=== PATIENT | male | born 1965 | race Caucasian/White ===

== ENCOUNTER → 2019-07-23 | Outpatient (CLI) | payer OTHER ==
[~2019-07-23] MED LIST: AMLO10 PO; ATOR10 PO
[2019-07-24 17:45] LABS: Campylobacter Sp Not Detected (NOT DETECT)
[2019-07-24 17:46] LABS: Adenovirus F 40/41 Not Detected (NOT DETECT); Astrovirus Not Detected (NOT DETECT); Cryptosporidium Not Detected (NOT DETECT); Cyclospora Cayetanensis Not Detected (NOT DETECT); E. Coli O157 Not Detected (NOT DETECT); Entamoeba Histolytica Not Detected (NOT DETECT); Enteroaggregative E. coli-EAEC Not Detected (NOT DETECT); Enteropathogenic E. coli-EPEC Not Detected (NOT DETECT); Enterotoxigenic E. coli-ETEC Not Detected (NOT DETECT); Giardia Lamblia Not Detected (NOT DETECT); Norovirus GI/GII Not Detected (NOT DETECT); Plesiomonas Shigelloides Not Detected (NOT DETECT); Rotavirus A Not Detected (NOT DETECT); Salmonella Sp Not Detected (NOT DETECT); Sapovirus Not Detected (NOT DETECT); Shiga Toxin-prod E. coli-STEC Not Detected (NOT DETECT); Shigella/Enteroin E. coli-EIEC Not Detected (NOT DETECT); Vibrio Cholerae Not Detected (NOT DETECT); Vibrio Sp Not Detected (NOT DETECT); Yersinia Enterocolitica Not Detected (NOT DETECT)
== END | disposition home or self-care (01) ==
LOC: LAB EV 14:30
PROVIDERS: Internal Medicine
DX: K52.9 Noninfective gastroenteritis and colitis, unspecified (principal)
CPT/HCPCS: 0097U

== ENCOUNTER 2019-08-03 07:09 | Day surgery (SDC) | payer OTHER ==
[~2019-08-03] VITALS: Ht 182.9 cm; Wt 109.7 kg
== END 2019-08-03 08:32 | disposition home or self-care (01) ==
LOC: CT 07:09 → ORD 07:09 → CT 08:00 → ORD 08:32
DX: I25.10 Atherosclerotic heart disease of native coronary artery without angina pectoris (principal); I11.0 Hypertensive heart disease with heart failure; I50.9 Heart failure, unspecified; E78.5 Hyperlipidemia, unspecified; F17.220 Nicotine dependence, chewing tobacco, uncomplicated; Z79.899 Other long term (current) drug therapy
CPT/HCPCS: 75574; Q9967

== ENCOUNTER → 2021-05-20 | Outpatient (CLI) | payer OTHER ==
[2021-05-20 19:07] LABS: Bun/Creatinine Ratio 15.2 (12.0-20.0); Calcium, Blood 9.2 mg/dL (8.5-10.1); Creatinine, Blood 1.38 mg/dL (0.60-1.20); Potassium, Blood 4.1 mmol/L (3.5-5.5); Uric Acid, Blood 7.4 mg/dL (3.5-7.2)
== END | disposition home or self-care (01) ==
LOC: LAB SHORT 18:55
PROVIDERS: Family Medicine
DX: M10.9 Gout, unspecified (principal)
CPT/HCPCS: 80048; 84550

== ENCOUNTER 2023-06-08 15:36 | Inpatient (IN) | payer OTHER ==
[~2023-06-08] VITALS: Ht 180.3 cm; Wt 107.1 kg
[2023-06-08 16:51] LABS: BASOPHILS ABSOLUTE AUTO 0.11 K/mm3 (0.00-0.23); BASOPHILS PERCENT AUTO 1 % (0-2); EOSINOPHILS ABSOLUTE AUTO 0.23 K/mm3 (0.00-0.68); EOSINOPHILS PERCENT AUTO 2 % (0-6); Hematocrit 41.6 % (37.0-53.0); Hemoglobin 13.9 g/dL (13.5-17.5); IMMATURE GRAN ABSOLUTE AUTO 0.03 K/mm3 (0.00-0.10); IMMATURE GRAN PERCENT AUTO 0 % (0-1); LYMPHOCYTES ABSOLUTE AUTO 1.81 K/mm3 (0.84-5.20); LYMPHOCYTES PERCENT AUTO 15 % (21-46); MONOCYTES ABSOLUTE AUTO 1.87 K/mm3 (0.16-1.47); MONOCYTES PERCENT AUTO 15 % (4-13); Mean Corpuscular HGB 30.8 pg (26.0-34.0); Mean Corpuscular HGB Conc 33.4 g/dL (31.5-36.5); Mean Corpuscular Volume 92 fL (80-100); Mean Platelet Volume 9.1 fL (9.1-12.4); NEUTROPHILS ABSOLUTE AUTO 8.12 K/mm3 (1.96-9.15); NEUTROPHILS PERCENT AUTO 67 % (41-73); Platelet Count 355 K/mm3 (150-400); RDW Coefficient Variation 12.7 % (11.7-14.2); RDW Standard Deviation 43.3 fL (35.1-46.3); Red Blood Cell Count 4.51 M/mm3 (4.30-5.90); White Blood Cell Count 12.17 K/mm3 (4.00-11.30)
[2023-06-08 17:19] LABS: C-REACTIVE PROTEIN, EXT RANGE 11.9 mg/dL (0.000-0.300)
[2023-06-08 17:22] LABS: Albumin, Blood 3.4 g/dL (3.4-5.0); Albumin/Globulin Ratio 0.7 (0.8-1.8); Bilirubin, Total 0.5 mg/dL (0.1-1.0); Bun/Creatinine Ratio 12.8 (12.0-20.0); Calcium, Blood 9.4 mg/dL (8.5-10.1); Creatinine, Blood 1.09 mg/dL (0.60-1.20); Globulin, Blood 4.8 g/dL (2.2-4.0); Potassium, Blood 3.6 mmol/L (3.5-5.5); Total Protein, Blood 8.2 g/dL (6.4-8.2)
[2023-06-09 08:37] LABS: Appearance, Synovial Fluid Hazy (Clear); Color, Synovial Fluid Yellow (None-P Yel); WBC Count, Synovial Fluid 59400 /mm3 (0-180)
[2023-06-09 08:38] LABS: BODY FLUID RBC 0.002 M/mm3 (0-0); RBC Count, Synovial Fluid 2000 /mm3 (0-0)
[2023-06-09 08:40] LABS: Crystals, Synovial Fluid Not Seen (Not Seen); Lymphs, Synovial Fluid 2 % (0-15); Monocytes/Macrophages, Synovia 11 % (0-65); Neutrophils, Synovial Fluid 87 % (0-24)
[2023-06-09 08:49] VITALS: BP 207/109
[2023-06-09 12:33] VITALS: BP 182/94
[2023-06-09 15:09] VITALS: BP 192/99
--- NOTE | 2023-06-09 19:39 | NUR ---
SHIFT SUMMARY PT HTN IMPROVED SINCE STARTING PO MEDICATION. PAIN WELL MANAGED WITH 10MG ROXICODONE AND TYLENOL. PT TO BE NPO AT MIDNIGHT FOR POS OR TOMORROW. CONTINUE IV ABX AT THIS TIME. IVF PER EMAR. PT VOIDING USING URINAL W/O DIFFICULTY.
[2023-06-09 19:45] VITALS: BP 127/79
[2023-06-10] VITALS (17 sets, daily range): BP systolic 127–182; BP diastolic 74–105
--- NOTE | 2023-06-10 04:25 | NUR ---
SHIFT SUMMARY S/P R KNEE SEPTIC ARTHRITIS. NO ACUTE CHANGES OVERNIGHT. VS WNL FOR PT. NPO SINCE MIDNIGHT, ANTICIPATED SURGERY LATER TODAY. PT SLEPT WELL OVERNIGHT, SIGNIFICANT OTHER AT BEDSIDE. PAIN MANAGEABLE, MEDICATED PER EMAR. USES URINAL INDEPENDENTLY, HAS NOT AMBULATED THIS SHIFT R/T TO PAIN. CALL LIGHT WITHIN REACH, BED IN LOWEST POSITION, WILL REPORT TO DAY RN.
[2023-06-10 08:48] LABS: BASOPHILS ABSOLUTE AUTO 0.08 K/mm3 (0.00-0.23); BASOPHILS PERCENT AUTO 1 % (0-2); EOSINOPHILS ABSOLUTE AUTO 0.36 K/mm3 (0.00-0.68); EOSINOPHILS PERCENT AUTO 4 % (0-6); Hematocrit 37.7 % (37.0-53.0); Hemoglobin 12.5 g/dL (13.5-17.5); IMMATURE GRAN ABSOLUTE AUTO 0.04 K/mm3 (0.00-0.10); IMMATURE GRAN PERCENT AUTO 0 % (0-1); LYMPHOCYTES ABSOLUTE AUTO 1.82 K/mm3 (0.84-5.20); LYMPHOCYTES PERCENT AUTO 20 % (21-46); MONOCYTES ABSOLUTE AUTO 1.41 K/mm3 (0.16-1.47); MONOCYTES PERCENT AUTO 16 % (4-13); Mean Corpuscular HGB 31.5 pg (26.0-34.0); Mean Corpuscular HGB Conc 33.2 g/dL (31.5-36.5); Mean Corpuscular Volume 95 fL (80-100); Mean Platelet Volume 9.4 fL (9.1-12.4); NEUTROPHILS ABSOLUTE AUTO 5.34 K/mm3 (1.96-9.15); NEUTROPHILS PERCENT AUTO 59 % (41-73); Platelet Count 307 K/mm3 (150-400); RDW Coefficient Variation 12.8 % (11.7-14.2); RDW Standard Deviation 44.6 fL (35.1-46.3); Red Blood Cell Count 3.97 M/mm3 (4.30-5.90); White Blood Cell Count 9.05 K/mm3 (4.00-11.30)
[2023-06-10 09:17] LABS: Albumin, Blood 2.5 g/dL (3.4-5.0); Albumin/Globulin Ratio 0.6 (0.8-1.8); Bilirubin, Total 0.4 mg/dL (0.1-1.0); Bun/Creatinine Ratio 16.1 (12.0-20.0); Calcium, Blood 8.6 mg/dL (8.5-10.1); Creatinine, Blood 1.18 mg/dL (0.60-1.20); Globulin, Blood 4.5 g/dL (2.2-4.0); Potassium, Blood 4.1 mmol/L (3.5-5.5)
[2023-06-10 09:23] LABS: Vancomycin, Trough 21.2 ug/mL (5.0-10.0)
--- NOTE | 2023-06-10 14:49 | NUR ---
PATIENT WAS TAKEN BACK TO THE OR.
--- NOTE | 2023-06-10 19:20 | NUR ---
SURGERY PT OFF TO SURGERY ON [facility]. S/O ACCOMPANIED PT.
--- NOTE | 2023-06-10 21:01 | NUR ---
06/10/232100 Sean Jackson 1G VANCO MIXED IN 1000ML NS AND USED TO IRRIGATE RIGHT KNEE
--- NOTE | 2023-06-10 21:55 | NUR ---
ARRIVAL TO UNIT PT ARRIVED TO UNIT ON GURNEY. A&O x4. WEANED O2, SAT >95% ON RA. PT SETTLED INTO BED. R KNEE ALMA WRAP C/D/I. COMPLAINTS OF INCREASED PAIN c MOVEMENT. MEDICATED PER EMAR. SIGNIFICANT OTHER AT BEDSIDE. CALL LIGHT WITHIN REACH, BED IN LOWEST POSITION.
--- NOTE | 2023-06-10 23:42 | NUR ---
DR CONSULT PT REPORTS 02/10 PAIN. MEDICATED PER EMAR- [address] ORDERED FENTANYL FOR BREAKTHROUGH PAIN.
[2023-06-11 04:04] VITALS: BP 150/93
[2023-06-11 05:10] LABS: Hematocrit 37.8 % (37.0-53.0); Hemoglobin 12.4 g/dL (13.5-17.5); Mean Corpuscular HGB 31.1 pg (26.0-34.0); Mean Corpuscular HGB Conc 32.8 g/dL (31.5-36.5); Mean Corpuscular Volume 95 fL (80-100); Mean Platelet Volume 9.4 fL (9.1-12.4); Platelet Count 326 K/mm3 (150-400); RDW Coefficient Variation 12.6 % (11.7-14.2); RDW Standard Deviation 44.1 fL (35.1-46.3); Red Blood Cell Count 3.99 M/mm3 (4.30-5.90); White Blood Cell Count 6.93 K/mm3 (4.00-11.30)
[2023-06-11 05:32] LABS: Bun/Creatinine Ratio 15.1 (12.0-20.0); Calcium, Blood 8.7 mg/dL (8.5-10.1); Creatinine, Blood 1.19 mg/dL (0.60-1.20); Potassium, Blood 4.1 mmol/L (3.5-5.5)
--- NOTE | 2023-06-11 06:37 | NUR ---
SHIFT SUMMARY POD 1 I&D R KNEE. NO ACUTE CHANGES OVERNGIHT. VS WNL FOR PT. TOLERATING ORALS. URINATES INDEPENDENTLY. PT HAS NOT AMBULATED POST-OP, ANTICIPATED TO WORK WITH PHYSCIAL THERAPY TODAY. PT REPORTS BREAKTHROUGH PAIN, PT HAS NOT YET AGREED TO USE OF PRN FENTANYL. MEDICATED 2 OXY PER EMAR. SIGNIFICANT OTHER AT BEDSIDE. POSSIBLE DISCHARGE c HOME HEALTH. CALL LIGHT WITHIN REACH, BED IN LOWEST POSITION, WILL REPORT TO DAY RN.
[2023-06-11 07:41] VITALS: BP 121/75
[2023-06-11 15:04] VITALS: BP 152/93
--- NOTE | 2023-06-11 17:39 | NUR ---
SHIFT SUMMARY PT IS POD#1 FROM I&D OF RIGHT KNEE. PAIN HAS BEEN MANAGED WITH PO PAIN MEDICATION. HE TOLERATED THERAPY AND IS A 1 PERSON SBA WITH THE WALKER. PT HAS BEEN ICING AND ELEVATING HIS R LEG. PT TOLERATING PO. HE IS TOLERATING ABX. PT SITTING IN THE CHIAR, HIS IS AT BEDSIDE, CALL LIGHT WITHIN REACH.
[2023-06-11 19:47] VITALS: BP 147/68
[2023-06-11 23:28] LABS: Vancomycin, Trough 20.7 ug/mL (5.0-10.0)
[2023-06-12 02:46] VITALS: BP 176/92
[2023-06-12 05:29] LABS: Hematocrit 34.6 % (37.0-53.0); Hemoglobin 11.5 g/dL (13.5-17.5); Mean Corpuscular HGB Conc 33.2 g/dL (31.5-36.5); Mean Corpuscular Volume 93 fL (80-100); Mean Platelet Volume 9.6 fL (9.1-12.4); Platelet Count 319 K/mm3 (150-400); RDW Coefficient Variation 12.5 % (11.7-14.2); RDW Standard Deviation 43.6 fL (35.1-46.3); Red Blood Cell Count 3.71 M/mm3 (4.30-5.90); White Blood Cell Count 8.51 K/mm3 (4.00-11.30)
[2023-06-12 05:53] LABS: Calcium, Blood 8.5 mg/dL (8.5-10.1); Creatinine, Blood 1.11 mg/dL (0.60-1.20)
[2023-06-12 07:47] VITALS: BP 156/99
--- NOTE | 2023-06-12 08:00 | NUR ---
SHIFT SUMMARY NOC. PT A/O X4. PT MEDICATED FOR PAIN WITH RELIEF OF SX. GAUZE AND KERLEX DRESSING ON RIGHT KNEE IS C/D/I. PT HAD A CRITICAL HIGH VANCO LEVEL THIS SHIFT. VANCO TIME ADJUSTED PER PHARMACY. PT VOIDING URINE AND TOLERATING PO INTAKE. PT'S SO STAYED AT BEDSIDE T/O THE NIGHT. PT RESTED WITH EYES CLOSED AND CALL LIGHT IN REACH.
--- NOTE | 2023-06-12 13:50 | NUR ---
R KNEE DRESSING CHANGED. AQUACEL DRESSING PLACED PER ORDER.
[2023-06-12 15:54] VITALS: BP 169/93
--- NOTE | 2023-06-12 17:03 | NUR ---
SHIFT SUMMARY PT IS POD#2 FROM I&D OF RIGHT KNEE. PAIN MANAGED WITH OXYCODONE. PT IS A SBA TO INDEPENDENT IN HIS ROOM WITH HIS WALKER. PT REMAINS IN HOSPITAL FOR ABX. PT SITTING UP IN HIS CHAIR, CALL LIGHT WITHIN REACH AND HIS IS AT HIS BEDSIDE.
[2023-06-12 20:03] VITALS: BP 160/91
[2023-06-12 23:47] VITALS: BP 143/88
[2023-06-13 04:27] VITALS: BP 162/83
[2023-06-13 05:13] LABS: Hematocrit 34.7 % (37.0-53.0); Hemoglobin 11.4 g/dL (13.5-17.5); Mean Corpuscular HGB 30.9 pg (26.0-34.0); Mean Corpuscular HGB Conc 32.9 g/dL (31.5-36.5); Mean Corpuscular Volume 94 fL (80-100); Mean Platelet Volume 9.3 fL (9.1-12.4); Platelet Count 317 K/mm3 (150-400); RDW Coefficient Variation 12.9 % (11.7-14.2); RDW Standard Deviation 44.5 fL (35.1-46.3); Red Blood Cell Count 3.69 M/mm3 (4.30-5.90); White Blood Cell Count 7.13 K/mm3 (4.00-11.30)
--- NOTE | 2023-06-13 06:34 | NUR ---
SHIFT SUMMARY NOC. PT S/P I&D FOR SEPTIC ARTHRITIS. PT A/O X4. PT VOIDING AND TOLERATING PO INTAKE. PT MEDICATED FOR PAIN THIS SHIFT WITH RELIEF OF SX. SEE EMAR FOR DOSING AND TIMES. AQUACEL X2 ON RIGHT ANTERIOR KNEE IS C/D/I. SENSATION AND MOTOR IN BILAT EXT INTACT. PT RESTED WITH EYES CLOSED AND CALL LIGHT IN REACH.
[2023-06-13 07:29] VITALS: BP 159/77
[2023-06-13 14:49] LABS: Vancomycin, Trough 14.3 ug/mL (5.0-10.0)
[2023-06-13 15:44] VITALS: BP 179/94
[2023-06-13 15:45] VITALS: BP 169/93
--- NOTE | 2023-06-13 18:23 | NUR ---
SHIFT SUMMARY PAIN INCREASED TODAY & MOBILITY DECREASED, UNSURE IF HE OVER DID HIMSELF YESTERDAY OR IS DECLINING PHYSICALLY. L KNEE NOTED TO BE SLIGHTLY SWOLLEN THIS AFTERNOON; DR CONCEPCION NOTIFIED. WOUND CULTURES STILL PRELIMINARY.
[2023-06-13 19:37] VITALS: BP 153/97
[2023-06-13 23:39] VITALS: BP 167/99
[2023-06-14] VITALS (7 sets, daily range): BP systolic 144–175; BP diastolic 77–102
[2023-06-14 04:50] LABS: Hemoglobin 12.5 g/dL (13.5-17.5); Mean Corpuscular HGB 30.5 pg (26.0-34.0); Mean Corpuscular HGB Conc 32.9 g/dL (31.5-36.5); Mean Corpuscular Volume 93 fL (80-100); Mean Platelet Volume 9.2 fL (9.1-12.4); Platelet Count 319 K/mm3 (150-400); RDW Coefficient Variation 12.8 % (11.7-14.2); RDW Standard Deviation 43.5 fL (35.1-46.3)
--- NOTE | 2023-06-14 05:30 | NUR ---
POD 4 S/P I&D OF R KNEE. PT VSS T/O NIGHT. DRESSING CDI. NO SIG CHANGES IN SWELLING TO R KNEE. LEFT KNEE REMAINS SWOLLEN, WARM TO PALP. PT USING ICE FOR COMFORT. PT DENIED N/T, BOTH KNEES REMAIN PAINFUL W/MOVEMENT AND LIMITED FLEXION. PAIN MGD W/ICE AND PO PAIN MEDS W/SOME RELIEF. PLAN FOR PICC LINE FOR [facility] ABX.
--- NOTE | 2023-06-14 14:20 | NUR ---
DR CONCEPCION INTO ROOM FOR L KNEE ASPIRATION & UPDATE ON PLAN OF CARE. PLAN FOR OR TOMORROW FOR BILAT KNEE PROCEDURE.
[2023-06-14 15:07] LABS: WBC Count, Synovial Fluid 17640 /mm3 (0-180)
[2023-06-14 15:08] LABS: Body Fluid Crystals POS (NEGATIVE)
[2023-06-14 15:32] LABS: RBC Count, Synovial Fluid 8 /mm3 (0-0)
[2023-06-14 15:34] LABS: Appearance, Synovial Fluid Cloudy (Clear); Color, Synovial Fluid Yellow (None-P Yel)
[2023-06-14 15:36] LABS: Lymphs, Synovial Fluid 2 % (0-15); Monocytes/Macrophages, Synovia 11 % (0-65); Neutrophils, Synovial Fluid 87 % (0-24)
--- NOTE | 2023-06-14 18:49 | NUR ---
SHIFT SUMMARY PT HAS BEEN PAINFUL & HAD DECREASED ACTIVITY OVER LAST 2 DAYS. HAS USED ICE ON BOTH KNEES T/O THIS SHIFT ONLY TAKING SHORT BREAKS. HAS KEPT BLE ELEVATED. L KNEE NOW w/ 4x4 & ALMA WRAP. R KNEE w/ UNCHANGED AQUACELS x 2.
[2023-06-15 04:17] VITALS: BP 173/91
[2023-06-15 04:56] LABS: BASOPHILS ABSOLUTE AUTO 0.07 K/mm3 (0.00-0.23); BASOPHILS PERCENT AUTO 1 % (0-2); EOSINOPHILS ABSOLUTE AUTO 0.39 K/mm3 (0.00-0.68); EOSINOPHILS PERCENT AUTO 4 % (0-6); Hematocrit 37.2 % (37.0-53.0); Hemoglobin 12.3 g/dL (13.5-17.5); IMMATURE GRAN ABSOLUTE AUTO 0.03 K/mm3 (0.00-0.10); IMMATURE GRAN PERCENT AUTO 0 % (0-1); LYMPHOCYTES ABSOLUTE AUTO 2.17 K/mm3 (0.84-5.20); LYMPHOCYTES PERCENT AUTO 24 % (21-46); MONOCYTES ABSOLUTE AUTO 1.47 K/mm3 (0.16-1.47); MONOCYTES PERCENT AUTO 16 % (4-13); Mean Corpuscular HGB 30.8 pg (26.0-34.0); Mean Corpuscular HGB Conc 33.1 g/dL (31.5-36.5); Mean Corpuscular Volume 93 fL (80-100); Mean Platelet Volume 9.3 fL (9.1-12.4); NEUTROPHILS ABSOLUTE AUTO 5.08 K/mm3 (1.96-9.15); NEUTROPHILS PERCENT AUTO 55 % (41-73); Platelet Count 323 K/mm3 (150-400); RDW Coefficient Variation 12.7 % (11.7-14.2); RDW Standard Deviation 43.7 fL (35.1-46.3); Red Blood Cell Count 3.99 M/mm3 (4.30-5.90); White Blood Cell Count 9.21 K/mm3 (4.00-11.30)
[2023-06-15 05:19] LABS: Albumin, Blood 2.6 g/dL (3.4-5.0); Albumin/Globulin Ratio 0.6 (0.8-1.8); Bilirubin, Total 0.6 mg/dL (0.1-1.0); Bun/Creatinine Ratio 20.5 (12.0-20.0); Calcium, Blood 9.1 mg/dL (8.5-10.1); Creatinine, Blood 1.17 mg/dL (0.60-1.20); Globulin, Blood 4.7 g/dL (2.2-4.0); Potassium, Blood 3.9 mmol/L (3.5-5.5); Total Protein, Blood 7.3 g/dL (6.4-8.2)
--- NOTE | 2023-06-15 06:34 | NUR ---
PT VSS T/O NIGHT. PAIN MGD PER EMAR W/SOME RELIEF. PT REP R KNEE MORE PAINFUL THIS AM. PT USING ICE PRN FOR COMFORT. PT DENIED CHANGES IN SENSATION. DRESSINGS CDI. PT NPO POST MIDNIGHT FOR PLAN FOR SURGERY TODAY.
--- NOTE | 2023-06-15 07:10 | NUR ---
RECVD BEDSIDE REPORT FROM PREVIOUS SHIFT RN, PT AND SPOUSE RESTING IN ROOM. BED IN LOWEST POSITION, BED RAILS UP X 2, CALL LIGHT WITHIN REACH, A/O X 4.
[2023-06-15 08:06] VITALS: BP 156/100
[2023-06-15 08:07] VITALS: BP 158/94
[2023-06-15 14:53] VITALS: BP 153/79
--- NOTE | 2023-06-15 16:25 | NUR ---
SHIFT SUMMARY: PT RECEIVED PICC PLACEMENT TODAY, NO SURGICAL INTERVENTION REQUIRED. VSS, TOLERATED PO INTAKE, VOIDING. DR CONCEPCION ROUNDED, EXPLAINED TO PT THERE WAS NO BACTERIAL GROWTH IN CULTURE OF KNEE, ACID CRYSTALS FORMED IN LEFT KNEE FLUID ASPIRATED YESTERDAY, POTENTIAL ACUTE GOUT ATTACK, WILL CONTINUE COLCHICINE TREATMENT AND RECHECK TOMORROW. WITH PT T/O SHIFT, FAMILY MEMBERS VISITED. ANALGESIA PER MAR PROVIDED WITH PAIN RATINGS FROM 4-7/10 T/O SHIFT.
[2023-06-15 19:53] VITALS: BP 152/99
[2023-06-15 20:08] LABS: Vancomycin, Trough 13.9 ug/mL (5.0-10.0)
--- NOTE | 2023-06-16 05:27 | NUR ---
SHIFT SUMMARY NO ACUTE CHANGES TO REPORT OVERNIGHT, PT HAS RESTED T/O THE NIGHT. PT MEDICATED FOR PAIN PRN PER EMAR. PAIN IN KNEES REMAINS UNCHANGED. PAIN INCREASES WITH MOVEMENT. PT TWO PERSON MAX ASSIST, AND IS VERY UNSTEADY ON FEET. PT STARTED ON COLCHICINE REGIMEN TO ALLEVIATE GOUT SYMPTOMS. PLAN OF CARE REMAINS UNCHANGED. BED IN LOWEST POSITION, CALL LIGHT WITHIN REACH.
[2023-06-16 05:54] VITALS: BP 145/92
[2023-06-16 06:18] LABS: BASOPHILS ABSOLUTE AUTO 0.08 K/mm3 (0.00-0.23); BASOPHILS PERCENT AUTO 1 % (0-2); EOSINOPHILS ABSOLUTE AUTO 0.39 K/mm3 (0.00-0.68); EOSINOPHILS PERCENT AUTO 5 % (0-6); Hematocrit 34.8 % (37.0-53.0); Hemoglobin 11.9 g/dL (13.5-17.5); IMMATURE GRAN ABSOLUTE AUTO 0.01 K/mm3 (0.00-0.10); IMMATURE GRAN PERCENT AUTO 0 % (0-1); LYMPHOCYTES ABSOLUTE AUTO 1.96 K/mm3 (0.84-5.20); LYMPHOCYTES PERCENT AUTO 24 % (21-46); MONOCYTES ABSOLUTE AUTO 1.54 K/mm3 (0.16-1.47); MONOCYTES PERCENT AUTO 19 % (4-13); Mean Corpuscular HGB 31.4 pg (26.0-34.0); Mean Corpuscular HGB Conc 34.2 g/dL (31.5-36.5); Mean Corpuscular Volume 92 fL (80-100); Mean Platelet Volume 9.1 fL (9.1-12.4); NEUTROPHILS ABSOLUTE AUTO 4.05 K/mm3 (1.96-9.15); NEUTROPHILS PERCENT AUTO 50 % (41-73); Platelet Count 302 K/mm3 (150-400); RDW Coefficient Variation 12.8 % (11.7-14.2); RDW Standard Deviation 42.9 fL (35.1-46.3); Red Blood Cell Count 3.79 M/mm3 (4.30-5.90); White Blood Cell Count 8.03 K/mm3 (4.00-11.30)
[2023-06-16 06:36] LABS: Albumin, Blood 2.5 g/dL (3.4-5.0); Albumin/Globulin Ratio 0.5 (0.8-1.8); Bilirubin, Total 0.4 mg/dL (0.1-1.0); Bun/Creatinine Ratio 24.6 (12.0-20.0); Calcium, Blood 8.9 mg/dL (8.5-10.1); Creatinine, Blood 1.14 mg/dL (0.60-1.20); Globulin, Blood 4.6 g/dL (2.2-4.0); Potassium, Blood 3.8 mmol/L (3.5-5.5); Total Protein, Blood 7.1 g/dL (6.4-8.2)
[2023-06-16 07:45] VITALS: BP 163/91
[2023-06-16 15:21] VITALS: BP 147/86
--- NOTE | 2023-06-16 17:23 | NUR ---
DR. CONCEPCION NOTIFIED OF RASH/ITCHING TO THE BACK OF PT'S LEGS. HE WAS ALSO NOTIFIED THAT ALMA WRAP IS CAUSING SOME IRRITATION. PER DR. CONCEPCION OK TO CHANGE ALMA WRAP TO AQUACEL DRESSING.
--- NOTE | 2023-06-16 19:13 | NUR ---
SHIFT SUMMARY PAIN MANAGED WITH PO PAIN MEDICATION. PT IS A 2 ASSIST WHEN OOB. PT GETTING IV ABX. AWAITING DISCHARGE PLAN. PT'S S/O AT BEDSIDE. PT PARTICIPATED IN BEDSIDE REPORT, CALL LIGHT WITHIN REACH.
[2023-06-16 19:49] VITALS: BP 157/84
[2023-06-17 03:17] VITALS: BP 167/90
--- NOTE | 2023-06-17 05:25 | NUR ---
SHIFT SUMMARY POD5 I&D R KNEE, POD2 ASPIRATION OF L KNEE PT RESTED T/O NIGHT. PAIN MANAGED PER EMAR. VOIDING, USING THE URINAL. DRESSING TO R KNEE AND L KNEE C/D/I. ICE ON R KNEE DURING THE NIGHT. VSS. NO OTHER CONCERNS AT THIS TIME. CALL LIGHT WITHIN REACH.
[2023-06-17 07:23] VITALS: BP 165/98
[2023-06-17 14:39] VITALS: BP 155/86
--- NOTE | 2023-06-17 18:39 | NUR ---
SHIFT SUMMARY ABX DC'D THIS AFTERNOON, PLAN TO TRIAL OVERNIGHT WITHOUT ABX. PREDNISONE TO START TOMORROW. PAIN MANAGED WITH OXYCODONE AND TYLENOL. PT IS A 1 ASSIST WHEN OOB. FAMILY AT THE BEDSIDE FOR SUPPORT.
[2023-06-17 19:48] VITALS: BP 158/80
[2023-06-18 05:12] VITALS: BP 152/98
--- NOTE | 2023-06-18 05:31 | NUR ---
SHIFT SUMMARY PT ABLE TO REST T/O NIGHT. PAIN MANAGED PER EMAR. TOLERTING PO INTAKE. VOIDING. ICE TO R KNEE DURING THE NIGHT. FAMILY AT [facility] FOR SUPPORT. NO OTHER CONCERNS AT THIS TIME. CALL LIGHT WITHIN REACH
[2023-06-18 07:41] VITALS: BP 165/94
[2023-06-18 14:51] VITALS: BP 167/97
[2023-06-18 19:20] VITALS: BP 164/94
--- NOTE | 2023-06-18 19:30 | NUR ---
SHIFT SUMMARY S/P R KNEE WASHOUT, A/OX4, VSS, TOLEARING PO, PAIN WELL MANAGED, ABLE TO GET OUT OF BED AND UP TO THE CHAIR TODAY WITH THERAPY, STARTED NEW MEDIATION FOR GOUT FLARE UP AND HIS PAIN IN THE SECOND HALF OF THE SHIFT WAS BETTER THAN THE FIRST. PICC LINE TO R BASILIC FLUSHES AND DRAWS WELL. NO ACUTE EVENTS THIS SHIFT, CALL LIGHT IN REACH.
--- NOTE | 2023-06-19 04:27 | NUR ---
SHIFT SUMMARY PT S/P I&D R KNEE. AQUACEL DRESSING C/D/I. MEDICATED ONCE FOR PAIN THIS SHIFT. CONTINUED HTN SINCE HOSPITALIZATION.PT INDEPENDENT IN ROOM USING CRUTCHES. TOLERATING ALL PO NO N/V. VOIDING W/O DIFFICULTY PER PT. NO MEASURED VOIDS.
[2023-06-19 04:43] LABS: Hematocrit 35.5 % (37.0-53.0); Hemoglobin 11.8 g/dL (13.5-17.5); Mean Corpuscular HGB 30.4 pg (26.0-34.0); Mean Corpuscular HGB Conc 33.2 g/dL (31.5-36.5); Mean Corpuscular Volume 92 fL (80-100); Mean Platelet Volume 9.3 fL (9.1-12.4); Platelet Count 370 K/mm3 (150-400); RDW Coefficient Variation 12.4 % (11.7-14.2); RDW Standard Deviation 41.3 fL (35.1-46.3); Red Blood Cell Count 3.88 M/mm3 (4.30-5.90); White Blood Cell Count 7.41 K/mm3 (4.00-11.30)
[2023-06-19 04:46] VITALS: BP 171/96
[2023-06-19 05:02] LABS: Bun/Creatinine Ratio 23.1 (12.0-20.0); Calcium, Blood 8.6 mg/dL (8.5-10.1); Creatinine, Blood 1.08 mg/dL (0.60-1.20); Potassium, Blood 3.6 mmol/L (3.5-5.5)
[2023-06-19 07:36] VITALS: BP 182/112
[2023-06-19 07:37] VITALS: BP 177/95
[2023-06-19 15:15] VITALS: BP 161/95
--- NOTE | 2023-06-19 16:49 | NUR ---
SHIFT SUMMARY I&D KNEE. PAIN IMPROVED TODAY PER PATIENT REPORT. HE HAS BEEN AMBULATING WELL IN ROOM USING CRUTCHES. CALLS APPROPRIATLY. PAIN CONTROLLED PER EMAR. PLAN IS TO DISCHARGE TOMORROW. PT IS EXCITED TO POSSIBLY LEAVE.
[2023-06-19 19:31] VITALS: BP 156/91
[2023-06-20 04:52] VITALS: BP 194/100
[2023-06-20 05:17] LABS: Hemoglobin 11.7 g/dL (13.5-17.5); Mean Corpuscular HGB 30.5 pg (26.0-34.0); Mean Corpuscular HGB Conc 33.4 g/dL (31.5-36.5); Mean Corpuscular Volume 91 fL (80-100); Mean Platelet Volume 9.6 fL (9.1-12.4); Platelet Count 378 K/mm3 (150-400); RDW Coefficient Variation 12.5 % (11.7-14.2); RDW Standard Deviation 41.5 fL (35.1-46.3); Red Blood Cell Count 3.83 M/mm3 (4.30-5.90); White Blood Cell Count 8.19 K/mm3 (4.00-11.30)
--- NOTE | 2023-06-20 05:36 | NUR ---
SHIFT SUMMARY PT HAS DONE WELL T/O SHIFT. NO ACUTE CHANGES. PLAN FOR DC HOME TODAY. PAIN WELL MANAGED WITH PO PAIN MEDICATION. PT UP TO BATHROOM INDEPENDENTLY USING CRUTCHES. HTN CONTINUES, RECHECK OF AM BP FOLLOWING PAIN MEDICATION MUCH IMPROVED, SYSTOLIC 148 DOWN FROM 190'S.
[2023-06-20 05:39] VITALS: BP 148/82
[2023-06-20 05:47] LABS: Calcium, Blood 8.4 mg/dL (8.5-10.1); Creatinine, Blood 1.08 mg/dL (0.60-1.20); Potassium, Blood 3.4 mmol/L (3.5-5.5)
[2023-06-20 07:15] VITALS: BP 170/96
[2023-06-20] MEDS ORDERED: OXAYDO5 M2 PO (10:54)
[2023-06-20] MEDS ORDERED: AMLO10 PO (10:56)
[2023-06-20] MEDS ORDERED: LISI20 PO (10:57)
[2023-06-20] MEDS ORDERED: INDO50 PO (10:57)
[2023-06-20] MEDS ORDERED: PRED20 PO (10:59)
--- NOTE | 2023-06-20 12:50 | NUR ---
DC'D HOME, DC INSTRUCTIONS GIVEN TO PT AND S.O, VERBALIZED UNDERSTANDING, DRESSINGS ON BILATERAL KNEE CHANGED W/ AQUACEL, SITE CLEAR, NO REDNESS OR SWELLING NOTED, DC'D W/ AQUACEL DRESSINGS AND BELONGINGS.
== END 2023-06-20 12:48 | disposition home or self-care (01) | DRG 872 ==
LOC: ER 15:36 → ERHOLD 19:03 → ER 19:03 → SURS 19:03
PROVIDERS: Family Medicine; Nurse Practitioner Acute Care; Orthopaedic Surgery; Physician Assistant; Student in an Organized Health Care Education/Training Program; ADMIT Internal Medicine
PROC: 3E03329 Introduction of Other Anti-infective into Peripheral Vein, Percutaneous Approach (ICD-10-PCS; 2023-06-08)
PROC: 0S9C4ZZ Drainage of Right Knee Joint, Percutaneous Endoscopic Approach (ICD-10-PCS; principal; 2023-06-10 20:00)
DX: A41.9 Sepsis, unspecified organism (principal); M00.9 Pyogenic arthritis, unspecified; I10 Essential (primary) hypertension; K21.9 Gastro-esophageal reflux disease without esophagitis; E78.00 Pure hypercholesterolemia, unspecified; Z86.79 Personal history of other diseases of the circulatory system; F17.290 Nicotine dependence, other tobacco product, uncomplicated; M25.461 Effusion, right knee
CPT/HCPCS: 36415; 36569; 73562-LT; 73562-RT; 80048; 80053; 80202; 83605; 85025; 85027; 85651; 86140; 87040; 87070; 87075; 87205; 89051; 89060; 93005; 93010; 93306; 94760; 96365; 96366; 96375; 97110; 97110-CQ; 97116; 97140; 97161; 97530; 99284-25; A9270; C1751; J0360; J0696; J1100; J1650; J2250; J2270; J2405; J2704; J3010; J3370; J7030; J7050; J7120; J7512

== ENCOUNTER 2023-08-23 11:12 | Inpatient (IN) | payer OTHER ==
[~2023-08-23] VITALS: Ht 182.9 cm; Wt 97.5 kg
[~2023-08-23 11:12] MED LIST changes: +INDO50 PO; +LISI20 PO; +OXAYDO5 M2 PO; +Prednisone10 MG PO
[2023-08-23] MEDS ORDERED: Crestor20 MG PO (12:04)
[2023-08-23] MEDS ORDERED: Cyclobenzaprine5 MG PO (12:04)
[2023-08-23] MEDS ORDERED: ALLO100 PO (12:05)
[2023-08-23 12:09] LABS: BASOPHILS ABSOLUTE AUTO 0.07 K/mm3 (0.00-0.23); BASOPHILS PERCENT AUTO 1 % (0-2); EOSINOPHILS ABSOLUTE AUTO 0.41 K/mm3 (0.00-0.68); EOSINOPHILS PERCENT AUTO 4 % (0-6); Hematocrit 31.6 % (37.0-53.0); Hemoglobin 10.3 g/dL (13.5-17.5); IMMATURE GRAN ABSOLUTE AUTO 0.04 K/mm3 (0.00-0.10); IMMATURE GRAN PERCENT AUTO 0 % (0-1); LYMPHOCYTES ABSOLUTE AUTO 1.98 K/mm3 (0.84-5.20); LYMPHOCYTES PERCENT AUTO 18 % (21-46); MONOCYTES ABSOLUTE AUTO 0.81 K/mm3 (0.16-1.47); MONOCYTES PERCENT AUTO 8 % (4-13); Mean Corpuscular HGB 28.2 pg (26.0-34.0); Mean Corpuscular HGB Conc 32.6 g/dL (31.5-36.5); Mean Corpuscular Volume 87 fL (80-100); Mean Platelet Volume 8.9 fL (9.1-12.4); NEUTROPHILS ABSOLUTE AUTO 7.44 K/mm3 (1.96-9.15); NEUTROPHILS PERCENT AUTO 69 % (41-73); Platelet Count 358 K/mm3 (150-400); RDW Coefficient Variation 14.6 % (11.7-14.2); RDW Standard Deviation 46.5 fL (35.1-46.3); Red Blood Cell Count 3.65 M/mm3 (4.30-5.90); White Blood Cell Count 10.75 K/mm3 (4.00-11.30)
[2023-08-23 12:26] LABS: Albumin, Blood 2.9 g/dL (3.4-5.0); Albumin/Globulin Ratio 0.6 (0.8-1.8); Bilirubin, Total 0.3 mg/dL (0.1-1.0); Bun/Creatinine Ratio 20.4 (12.0-20.0); Creatinine, Blood 1.08 mg/dL (0.60-1.20); Globulin, Blood 4.9 g/dL (2.2-4.0); Potassium, Blood 3.9 mmol/L (3.5-5.5); Total Protein, Blood 7.8 g/dL (6.4-8.2)
[2023-08-23] MEDS ORDERED: OxyCODONE HCL 5 MG TAB PO PRN (16:30)
[2023-08-23] MEDS ORDERED: Ketorolac Tromethamine 15mg Vial IV PRN (16:40)
[2023-08-23] MEDS ORDERED: Allopurinol 100 MG Tab PO SCH (17:00)
[2023-08-23] MEDS ORDERED: Cyclobenzaprine HCl 10 MG Tab PO SCH (17:00)
[2023-08-23] MEDS ORDERED: Rosuvastatin Calcium 10 MG Tab PO SCH (17:00)
[2023-08-23] MEDS ORDERED: MethylPREDNISolone Sod Succ 125 MG Vial IV SCH (18:00)
[2023-08-23 19:39] VITALS: BP 148/86
--- NOTE | 2023-08-23 22:07 | NUR ---
PT ARRIVED TO ROOM FROM ER VIA GURNEY. SLIDE USED TO TRANSFER TO BED. A&O X4. BILATERAL KNEES VERY PAINFUL TO MOVE. PT STATES HE HASN'T BEEN ABLE TO SHOWER FOR 2 WEEKS D/T KNEE PAIN AND UNABLE TO STAND. STATES HE PASSED OUT THIS AM ACCORDING TO HIS GF AFTER FEELING SWEATY AND LIGHT HEADED. DENIES ANY FEELINGS OF DIZZINESS. WILL CONTINUE TO PROVIDE CARE AND MONITOR FOR CHANGES.
[2023-08-23] MEDS ORDERED: Miconazole Nitrate 2% 85 GM PWD TOP SCH (22:30)
[2023-08-23] MEDS ORDERED: Allopurinol 100 MG Tab PO ONE (23:15)
[2023-08-24 04:25] VITALS: BP 142/94
--- NOTE | 2023-08-24 05:24 | NUR ---
Pt was admitted for syncopal episodes at home. Pt is on tele. Lung sounds clear t/o. Pt has been resting quietly most of this shift. Medicated for pain with HS meds and one more time this shift with good effects. Will continue to monitor t/o shift.
[2023-08-24 06:03] LABS: BASOPHILS ABSOLUTE AUTO 0.01 K/mm3 (0.00-0.23); BASOPHILS PERCENT AUTO 0 % (0-2); EOSINOPHILS PERCENT AUTO 0 % (0-6); Hematocrit 34.1 % (37.0-53.0); Hemoglobin 10.9 g/dL (13.5-17.5); IMMATURE GRAN ABSOLUTE AUTO 0.02 K/mm3 (0.00-0.10); IMMATURE GRAN PERCENT AUTO 0 % (0-1); LYMPHOCYTES ABSOLUTE AUTO 1.26 K/mm3 (0.84-5.20); LYMPHOCYTES PERCENT AUTO 19 % (21-46); MONOCYTES ABSOLUTE AUTO 0.05 K/mm3 (0.16-1.47); MONOCYTES PERCENT AUTO 1 % (4-13); Mean Corpuscular HGB 27.2 pg (26.0-34.0); Mean Corpuscular Volume 85 fL (80-100); NEUTROPHILS ABSOLUTE AUTO 5.38 K/mm3 (1.96-9.15); NEUTROPHILS PERCENT AUTO 80 % (41-73); Platelet Count 430 K/mm3 (150-400); RDW Coefficient Variation 14.5 % (11.7-14.2); RDW Standard Deviation 45.3 fL (35.1-46.3); Red Blood Cell Count 4.01 M/mm3 (4.30-5.90); White Blood Cell Count 6.72 K/mm3 (4.00-11.30)
[2023-08-24 06:59] LABS: Albumin, Blood 3.1 g/dL (3.4-5.0); Albumin/Globulin Ratio 0.6 (0.8-1.8); Bilirubin, Total 0.3 mg/dL (0.1-1.0); Bun/Creatinine Ratio 32.7 (12.0-20.0); Calcium, Blood 10.1 mg/dL (8.5-10.1); Creatinine, Blood 0.89 mg/dL (0.60-1.20); Globulin, Blood 5.3 g/dL (2.2-4.0); Total Protein, Blood 8.4 g/dL (6.4-8.2)
[2023-08-24 07:58] VITALS: BP 130/92
[2023-08-24] MEDS ORDERED: AmLODIPine Besylate 5 MG Tab PO SCH (09:00)
[2023-08-24] MEDS ORDERED: Enoxaparin 40 MG/0.4 ML SYR SC SCH (09:00)
[2023-08-24 15:56] VITALS: BP 129/79
--- NOTE | 2023-08-24 19:35 | NUR ---
PT IS A/OX4, PLEASANT AND COOPERATIVE. THE PT APPEARS TO BE BREATHING EASILY AT REST WITHOUT OCYGEN. THE PT WAS GIVEN TORADOL AND OXYCODONE FOR PAIN THIS AM AND WAS ABLE TO TOLERATE WORKING WITH THE PHYSICAL AND OCCUPATIONAL THERAPIST SINCE THEN. THE PT WAS ABLE TO STAND AND TRANSFER TO AND FROM THE RECLINER USEING THE FWW TODAY. PTS FAMILY WAS AT THE BEDSIDE T/O THE DAY. PT DENIED ANY LIGHTHEADEDNESS/DIZZINESS TODAY. CALL LIGHT IN REACH. REPORT GIVEN TO THE NIGHT RN
[2023-08-24 19:58] VITALS: BP 131/80
[2023-08-25 03:36] VITALS: BP 134/86
[2023-08-25 04:54] LABS: ANTI-NUCLEAR AB ANA,IGG ELISA None Detected (None Detected)
--- NOTE | 2023-08-25 05:37 | NUR ---
SHIFT SUMMARY: PT IS ADMITTED FOR SYNCOPAL EPISODES AND IS A RULL CODE. IS ALERT AND ABLE TO MAKE NEEDS KNOWN. ADLs HAVE BEEN INDEPENDENT. BUT HAS NOT GOTTEN OUT OF BED THIS SHIFT. HAS BEEN GIVEN PRN PAIN MANAGEMENT X1. KELSEY REPORTS SINUS AT 72.
[2023-08-25 06:00] LABS: BASOPHILS ABSOLUTE AUTO 0.01 K/mm3 (0.00-0.23); BASOPHILS PERCENT AUTO 0 % (0-2); EOSINOPHILS PERCENT AUTO 0 % (0-6); Hematocrit 30.3 % (37.0-53.0); Hemoglobin 9.8 g/dL (13.5-17.5); IMMATURE GRAN ABSOLUTE AUTO 0.05 K/mm3 (0.00-0.10); IMMATURE GRAN PERCENT AUTO 1 % (0-1); LYMPHOCYTES ABSOLUTE AUTO 1.59 K/mm3 (0.84-5.20); LYMPHOCYTES PERCENT AUTO 15 % (21-46); MONOCYTES ABSOLUTE AUTO 0.33 K/mm3 (0.16-1.47); MONOCYTES PERCENT AUTO 3 % (4-13); Mean Corpuscular HGB 27.5 pg (26.0-34.0); Mean Corpuscular HGB Conc 32.3 g/dL (31.5-36.5); Mean Corpuscular Volume 85 fL (80-100); Mean Platelet Volume 9.3 fL (9.1-12.4); NEUTROPHILS ABSOLUTE AUTO 8.55 K/mm3 (1.96-9.15); NEUTROPHILS PERCENT AUTO 81 % (41-73); Platelet Count 432 K/mm3 (150-400); RDW Coefficient Variation 14.6 % (11.7-14.2); RDW Standard Deviation 45.5 fL (35.1-46.3); Red Blood Cell Count 3.56 M/mm3 (4.30-5.90); White Blood Cell Count 10.53 K/mm3 (4.00-11.30)
[2023-08-25 06:20] LABS: Albumin/Globulin Ratio 0.6 (0.8-1.8); Bilirubin, Total 0.3 mg/dL (0.1-1.0); Bun/Creatinine Ratio 42.7 (12.0-20.0); Calcium, Blood 9.8 mg/dL (8.5-10.1); Creatinine, Blood 1.03 mg/dL (0.60-1.20); Globulin, Blood 4.7 g/dL (2.2-4.0); Potassium, Blood 4.2 mmol/L (3.5-5.5); Total Protein, Blood 7.7 g/dL (6.4-8.2)
[2023-08-25 07:50] VITALS: BP 127/74
[2023-08-25 16:22] VITALS: BP 144/85
--- NOTE | 2023-08-25 16:38 | NUR ---
SHIFT SUMMARY: PT IS A 57 YEAR OLD MALE HERE AFTER HAVING A SYNCOPAL EPISODE AT HOME. PATIENT HAS DENIED ANY SYNCOPAL EPISODES SINCE ADMISSION AND DENIES FEELINGS OF LIGHTHEADNESS, DIZZINESS, OR FEELINGS OF PASSING OUT EVEN WITH GETTING UP AND SHOWERING. PATIENT SEEMS TO COMPLAIN MORE OF HIS KNEES HURTING AND EFFECTING HIS ABILITY TO GET AROUND. HE STATES THAT THE TORADOL AND OR THE HOT SHOWER SEEMED TO HAVE HELPED HIS KNEE PAIN. HE IS CURRENTLY IN HIS BEDSIDE RECLINER, FAMILY VISITING, AND NO SIGNS OR SYMPTOMS OF DISTRESS. NO EVENTS WITH TELEMETRY. PLAN OF CARE ONGOING.
[2023-08-25] MEDS ORDERED: Omeprazole 20 MG CapCR PO ONE (17:25)
[2023-08-25 20:20] VITALS: BP 139/82
[2023-08-25] MEDS ORDERED: PredniSONE 20 MG Tab PO SCH (21:00)
[2023-08-26 03:54] VITALS: BP 140/91
[2023-08-26 05:38] LABS: BASOPHILS ABSOLUTE AUTO 0.01 K/mm3 (0.00-0.23); BASOPHILS PERCENT AUTO 0 % (0-2); EOSINOPHILS PERCENT AUTO 0 % (0-6); Hematocrit 30.7 % (37.0-53.0); Hemoglobin 9.8 g/dL (13.5-17.5); IMMATURE GRAN ABSOLUTE AUTO 0.03 K/mm3 (0.00-0.10); IMMATURE GRAN PERCENT AUTO 0 % (0-1); LYMPHOCYTES ABSOLUTE AUTO 1.25 K/mm3 (0.84-5.20); LYMPHOCYTES PERCENT AUTO 12 % (21-46); MONOCYTES ABSOLUTE AUTO 0.34 K/mm3 (0.16-1.47); MONOCYTES PERCENT AUTO 3 % (4-13); Mean Corpuscular HGB 27.3 pg (26.0-34.0); Mean Corpuscular HGB Conc 31.9 g/dL (31.5-36.5); Mean Corpuscular Volume 86 fL (80-100); Mean Platelet Volume 9.7 fL (9.1-12.4); NEUTROPHILS ABSOLUTE AUTO 8.95 K/mm3 (1.96-9.15); NEUTROPHILS PERCENT AUTO 85 % (41-73); Platelet Count 463 K/mm3 (150-400); RDW Coefficient Variation 14.6 % (11.7-14.2); RDW Standard Deviation 45.2 fL (35.1-46.3); Red Blood Cell Count 3.59 M/mm3 (4.30-5.90); White Blood Cell Count 10.58 K/mm3 (4.00-11.30)
[2023-08-26] MEDS ORDERED: Omeprazole 20 MG CapCR PO SCH (06:00)
--- NOTE | 2023-08-26 06:44 | NUR ---
SHIFT SUMMARY: PT IS ADMITTED FOR SYNCOPAL EPISODES AND IS A FULL CODE. IS ALERT AND ABLE TO MAKE NEEDS KNOWN. ADLS HAVE BEEN STANDBY DURING SHIFT BUT DID NOT GET OUT OF BED. STATED HIS PAIN WAS MANAGEABLE AND DECLINED ANY PRN DURING SHIFT. IV TO LEFT AC IS PATENT WITH DRESSING THAT IS CDI. KELSEY REPORTS SINUS AT 83.
[2023-08-26 07:28] VITALS: BP 149/98
[2023-08-26] MEDS ORDERED: Polyethylene Glycol 3350 17 gm PO PRN (11:00)
[2023-08-26] MEDS ORDERED: Polyethylene Glycol 3350 17 gm PO ONE (11:00)
[2023-08-26 16:19] VITALS: BP 143/98
--- NOTE | 2023-08-26 16:56 | NUR ---
SHIFT SUMMARY: A&OX4/INDEPENDENT/SBA. NO EVENTS WITH THE PATIENT DURING THE SHIFT. TELE D/C'D AND NEW IV PLACED. PATIENT HAS HAD IMPROVEMENT IN MOBILITY WITH HIS KNEES AND IMPROVEMENT IN PAIN. CONTINUES TO DENY AND SIGNS OR SYMPTOMS OF SYNCOPE. 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 PATIENT IS AGREEABLE TO THIS PLAN. HE IS PLEASANT AND COOPERATIVE WITH CARE, MAKES HIS NEEDS KNOWN, AND ISN'T SHOWING ANY SIGNS OR SYMPTOMS OF DISTRESS. HIS GIRLFRIEND IS WITH HIM AT BEDSIDE, HE IS IN HIS BEDSIDE RECLINER, CALL LIGHT WITHIN REACH. PLAN OF CARE ONGOING.
[2023-08-26 20:19] VITALS: BP 129/81
[2023-08-27 03:29] VITALS: BP 150/96
--- NOTE | 2023-08-27 03:59 | NUR ---
SHIFT ASSESSMENT ILIANA WAS ALERT AND FULLY ORIENTED ON ASSESSMENT. PT DENIES NEW OR WORSENING COMPLAINTS, C/P/PRESSURE, OR SOB. PT REQUESTED TO BE MEDICATED FOR PAIN EARLY IN THE SHIFT SO THAT HE COULD TOLERATE PRACTICING HIS THERAPY EXERCISES. NO ACUTE EVENTS TONIGHT, NO NOTED CHANGES TO CONDITION. PT RESTING AT A LOW POSITION WITH CALL LIGHT IN REACH
[2023-08-27 07:19] VITALS: BP 156/98
[2023-08-27 16:38] VITALS: BP 130/90
--- NOTE | 2023-08-27 16:44 | NUR ---
SHIFT SUMMARY; PATIENT HAD UNEVENTFUL DAY. NO ACUTE CHANGES IN CONDITION NOTED. HE DID WORK WITH PT TODAY AND HAD DIFFICULTY USING FWW TO AMBULATE IN HALLWAY. PER PATIENT IT IS VERY PAINFULL TO WALK AND HE HAS SEVERE PAIN WITH EVERY STEP. HIS VITAL SIGNS ARE STABLE AND WNL. PATIENT HAS PLEASANT AFFECT AND USES CALL LIGHT APPROPRIATELY. GIRLFRIEND STAYS AT BEDSIDE FOR MOST OF DAY. ASSISTING PAITENT WITH HIS ADL'S. WILL REMAIN AVAILABLE FOR THIS PATIENT FOR ANY WANTS OR NEEDS THAT COME UP PRIOR TO SHIFT CHANGE AND REPORT TO NOC SHIFT RN.
[2023-08-27 20:24] VITALS: BP 146/92
--- NOTE | 2023-08-28 04:00 | NUR ---
SHIFT ASSESSMENT ILIANA WAS ALERT AND FULLY ORIENTED ON ASSESSMENT. PT DENIES NEW OR WORSENING COMPLAINTS, C/P/PRESSURE, OR SOB. NO ACUTE EVENTS TONIGHT, NO NOTED CHANGES TO CONDITION. PT RESTING AT A LOW POSITION WITH CALL LIGHT IN REACH. PLAN TO DX TO SNF IS DELAYED, PT'S INSURANCE SEEMS TO BE THE HOLD UP. CURRENTLY LOOKING AT TUESDAY DISCHARGE.
[2023-08-28 07:50] VITALS: BP 149/99
[2023-08-28 09:08] LABS: Albumin, Blood 3.1 g/dL (3.4-5.0); Anion Gap 1 mmol/L (6-16); Blood Urea Nitrogen 32 mg/dL (8-24); CO2, Blood 28 mmol/L (21-32); Calcium, Blood 9.5 mg/dL (8.5-10.1); Chloride, Blood 110 mmol/L (98-108); Glomerular Filtration Rate 102 (60-); Glucose, Blood 130 mg/dL (70-99); Phosphorus, Blood 3.1 mg/dL (2.5-4.9); Potassium, Blood 4.1 mmol/L (3.5-5.5); Sodium, Blood 139 mmol/L (136-145)
[2023-08-28 15:22] VITALS: BP 148/88
--- NOTE | 2023-08-28 16:03 | NUR ---
SHIFT SUMMARY; PATIENT REPORTS KNEE'S ARE PAINFULL TO WALK SO HE REMAINS IN RECLINER MOST OF DAY. NO ACUTE CHANGES IN CONDITION NOTED FOR THIS PATIENT DURING DAY SHIFT. HIS LUNGS ARE CLEAR TO AUSCULTATION. HE IS AO X 4. HAS PLEASANT AFFECT AND IS ABLE TO MAKE HIS NEEDS KNOWN. HIS BLOOD PRESSURE IS HIGH AT 148 SYSTOLIC THIS AFTERNOON HOWEVER HR IS LOW AT 68. PATIENT IS NOT SYMPTOMATIC AND DENIES ANY CP OR PRESSURE. GIRLFRIEND REMAINS AT BEDSIDE AND ASSISTS PATIENT WITH ANY WANTS OR NEEDS THAT HE MAY HAVE.
[2023-08-28 19:46] VITALS: BP 137/83
--- NOTE | 2023-08-29 04:19 | NUR ---
SHIFT ASSESSMENT ILIANA WAS ALERT AND FULLY ORIENTED ON ASSESSMENT. PT DENIES NEW OR WORSENING COMPLAINTS, C/P/PRESSURE, OR SOB. NO ACUTE EVENTS TONIGHT, NO NOTED CHANGES TO CONDITION. PT RESTING AT A LOW POSITION WITH CALL LIGHT IN REACH. PLAN TO DX TO SNF IS DELAYED, PT'S INSURANCE IS DETERMINING IF THEY WILL COVER SNF, DECISION IS SUPPOSED TO BE MADE TODAY ON DAY SHIFT.
[2023-08-29 04:25] VITALS: BP 157/96
[2023-08-29 05:11] LABS: Hematocrit 31.9 % (37.0-53.0); Hemoglobin 10.5 g/dL (13.5-17.5)
[2023-08-29 05:50] LABS: Bun/Creatinine Ratio 39.5 (12.0-20.0); Calcium, Blood 8.8 mg/dL (8.5-10.1); Creatinine, Blood 0.71 mg/dL (0.60-1.20); Potassium, Blood 4.2 mmol/L (3.5-5.5)
[2023-08-29 07:24] VITALS: BP 163/91
[2023-08-29] MEDS ORDERED: Colchicine 0.6 MG TAB PO SCH (09:00)
[2023-08-29] MEDS ORDERED: COLCHICINE0.6 MG PO (10:54)
[2023-08-29 11:48] LABS: SARS-Cov-2 (COVID-19) PCR, MMC NEGATIVE (NEGATIVE)
--- NOTE | 2023-08-29 14:29 | NUR ---
SHIFT SUMMARY A&OX4, COOPERATIVE WITH CARE. NO ACUTE EVENTS THIS SHIFT. DENIED CP/PRESSURE THIS SHIFT. COMPLAINED OF BILATERAL KNEE PAIN R/T GOUT. SWELLING TO BLE NOTED. IV REMOVED, TIP INTACT. DISCHARGE PACKET REVIEWED. HARD SCRIPTS PUT IN PATIENT'S DC FOLDER. PATIENT AND DENIED ANY QUESTIONS OR CONCERNS. PATIENT WHEELED OUT FOR TRANSPORT TO [facility] AT 1330.
--- NOTE | 2023-08-29 15:36 | NUR ---
ATTEMPTED TO CALL [facility] TO GIVE REPORT. I WAS PUT ON HOLD FOR 10 MINUTES BEFORE HANGING UP. LEFT MESSAGE TO CALL BACK IF THEY WISH TO RECEIVE REPORT.
== END 2023-08-29 13:42 | DRG 312 ==
LOC: ER 11:12 → MEDS 11:13 → ENPENDDIS 08-29 10:36 → MEDS 08-29 13:42
PROVIDERS: Emergency Medicine; Family Medicine; Family Medicine Adult Medicine; Internal Medicine; ADMIT Hospitalist
DX: R55 Syncope and collapse (principal); M10.9 Gout, unspecified; E78.00 Pure hypercholesterolemia, unspecified; I10 Essential (primary) hypertension; M17.0 Bilateral primary osteoarthritis of knee; K21.9 Gastro-esophageal reflux disease without esophagitis; Z87.891 Personal history of nicotine dependence; Z79.52 Long term (current) use of systemic steroids
CPT/HCPCS: 36415; 73560-LT; 73560-RT; 80048; 80053; 80069; 84484; 85014; 85018; 85025; 85651; 86038; 86140; 93005; 93010; 96372; 96374; 96375; 96376; 97110; 97116; 97161; 97165; 97530; 97535; 99285-25; A9270; G0378; J1650; J1885; J2930; J7512; U0002

== ENCOUNTER → 2023-10-21 | Outpatient (CLI) | payer OTHER ==
[~2023-10-21] MED LIST changes: +ALLO100 PO; +COLCHICINE0.6 MG PO; +Crestor20 MG PO; +Cyclobenzaprine5 MG PO
[2023-10-21 18:40] LABS: BASOPHILS ABSOLUTE AUTO 0.08 K/mm3 (0.00-0.23); BASOPHILS PERCENT AUTO 2 % (0-2); EOSINOPHILS ABSOLUTE AUTO 0.29 K/mm3 (0.00-0.68); EOSINOPHILS PERCENT AUTO 5 % (0-6); IMMATURE GRAN ABSOLUTE AUTO 0.01 K/mm3 (0.00-0.10); IMMATURE GRAN PERCENT AUTO 0 % (0-1); LYMPHOCYTES ABSOLUTE AUTO 2.02 K/mm3 (0.84-5.20); LYMPHOCYTES PERCENT AUTO 37 % (21-46); MONOCYTES ABSOLUTE AUTO 0.77 K/mm3 (0.16-1.47); MONOCYTES PERCENT AUTO 14 % (4-13); Mean Corpuscular HGB Conc 32.6 g/dL (31.5-36.5); Mean Corpuscular Volume 89 fL (80-100); Mean Platelet Volume 10.1 fL (9.1-12.4); NEUTROPHILS ABSOLUTE AUTO 2.26 K/mm3 (1.96-9.15); NEUTROPHILS PERCENT AUTO 42 % (41-73); Platelet Count 218 K/mm3 (150-400); RDW Coefficient Variation 16.4 % (11.7-14.2); RDW Standard Deviation 53.7 fL (35.1-46.3); Red Blood Cell Count 4.82 M/mm3 (4.30-5.90); White Blood Cell Count 5.43 K/mm3 (4.00-11.30)
[2023-10-21 18:56] LABS: Bun/Creatinine Ratio 12.7 (12.0-20.0); Calcium, Blood 9.9 mg/dL (8.5-10.1); Creatinine, Blood 1.02 mg/dL (0.60-1.20); Potassium, Blood 3.7 mmol/L (3.5-5.5); Uric Acid, Blood 5.3 mg/dL (3.5-7.2)
[2023-10-24 12:08] LABS: FERRITIN 560 ng/mL (30-400)
[2023-10-24 23:08] LABS: IRON BIND.CAP.(TIBC) 300 ug/dL (250-450); IRON SATURATION 21 % (15-55); IRON, SERUM 63 ug/dL (38-169); UIBC 237 ug/dL (111-343)
== END | disposition home or self-care (01) ==
LOC: LAB 17:43 → LAB SHORT 17:43
PROVIDERS: Student in an Organized Health Care Education/Training Program
DX: M10.9 Gout, unspecified (principal); D64.9 Anemia, unspecified; R73.9 Hyperglycemia, unspecified
CPT/HCPCS: 80048; 82728; 83540; 83550; 84550; 85025